=== PATIENT | female | born 1975 | race Caucasian/White ===

== ENCOUNTER 2016-10-23 19:21 | Emergency (ER) | payer MEDICAID ==
[2016-10-23 19:22] VITALS: BMI 39.3
[2016-10-23 19:34] VITALS: BP 127/83; PULSE 96; TEMP 98.9; O2SAT 96
[2016-10-23] MEDS ORDERED: Bacitracin 500 Units/gm Oint Foilpak UD TOP ONE (19:45)
--- NOTE | 2016-10-23 19:49 | C.PDOC ---
History Of Present Illness 40 y/o female presents to the ED with complains of toothache to left upper molar for the past 4 days. Pt has taken ibuprofen and percocet with mild relief. Pt applied ice to the area, fell asleep against ice pack and 2 hours later noticed redness to face. Pt denies fever, chills, sore throat or any other complaints. Time Seen by Provider: 10/23/16 19:34 Chief Complaint (Nursing): Dental Pain History Per: Patient History/Exam Limitations: no limitations Onset/Duration Of Symptoms: Days Current Symptoms Are (Timing): Still Present Severity: Moderate Quality: Positive for: "Pain" Recent travel outside of the [place]: No Past Medical History Reviewed: Historical Data, Nursing Documentation, Vital Signs Vital Signs: Last Vital Signs Temp 98.9 F 10/23/16 19:29 Pulse 96 H 10/23/16 19:29 Resp 20 10/23/16 19:59 BP 127/83 10/23/16 19:29 Pulse Ox 96 10/23/16 20:32 - Medical History PMH: Anemia, Anxiety, Back Problems (SPINAL STENOSIS), Depression, Gastrointestinal Ulcer, HTN, Kidney Stones, Pancreatitis (POST ABD SURG) Surgical History: Cholecystectomy, Endoscopy - [facility] Procedures ESOPHAGOGASTRODUODENOSCOPY [EGD] W/CLOSED BIOPSY (06/15/13) INJECT/INFUSE NEC (10/18/12) OTHER ENDOSCOPY OF SM INTEST (11/01/13) Family History: States: Unknown Family Hx - Social History Hx Tobacco Use: Yes Hx Alcohol Use: No Hx Substance Use: No - Immunization History Hx Tetanus Toxoid Vaccination: Yes Hx Influenza Vaccination: Yes Hx Pneumococcal Vaccination: Yes Review Of Systems Constitutional: Negative for: Fever, Chills Eyes: Negative for: Pain, Vision Change ENT: Positive for: Other (left upper molar toothache). Negative for: Ear Pain, Nose Pain, Throat Pain Cardiovascular: Negative for: Chest Pain Respiratory: Negative for: Cough Gastrointestinal: Negative for: Nausea Skin: Positive for: Other (left cheek redness) Physical Exam - Physical Exam Appears: Non-toxic, No Acute Distress Skin: Warm, Dry, No Rash, Other (blanching erythema to left cheek) Head: Atraumatic, Normacephalic Eye(s): bilateral: Normal Inspection, EOMI Nose: Normal Oral Mucosa: Moist Teeth: Caries (left upper molar with large cavity, no bleeding or swelling), No Loose Gingiva: No Swelling, No Bleeding, No Abscess Throat: Normal, No Erythema Neck: Normal ROM, Supple Extremity: Bilateral: Atraumatic, Normal ROM Neurological/Psych: Oriented x3, Normal Speech ED Course And Treatment O2 Sat by Pulse Oximetry: 96 (on room air) Pulse Ox Interpretation: Normal Medical Decision Making Medical Decision Making: [facility] reviewed: 10/17/2016 CLONAZEPAM 1 MG TABLET #20 10/17/2016 OXYCODONE-ACETAMINOPHEN 10-325 #50 Plan: Treat with Ibuprofen 800mg PO. Bacitracin applied to face. Advise follow up with dentist in few days. Disposition Counseled Patient/Family Regarding: Need For Followup, Rx Given - Disposition Referrals: Non [facility] Provider, [Primary Care Provider] - Disposition: HOME/ ROUTINE Disposition Time: 19:48 Condition: STABLE Additional Instructions: Please follow up with Dentist Take ibuprofen for pain every 6-8 hours as needed May apply bacitracin to face Prescriptions: Ibuprofen [Motrin Tab] 800 mg PO Q12 #14 tab Instructions: Dental Caries (ED) Forms: [facility] - POA Present On Arrival: None - Clinical Impression Clinical Impression: Dental caries - PA / NONPROFIT DIRECTOR / Resident Statement MD/DO has reviewed & agrees with the documentation as recorded. - Scribe Statement The provider has reviewed the documentation as recorded by the Scribe Jose Kelley All medical record entries made by the Scribe were at my direction and personally dictated by me. I have reviewed the chart and agree that the record accurately reflects my personal performance of the history, physical exam, medical decision making, and the department course for this patient. I have also personally directed, reviewed, and agree with the discharge instructions and disposition.
[2016-10-23] MEDS ORDERED: Bacitracin 500 Units/gm Oint Foilpak UD ONE (19:53)
[2016-10-23 20:00] VITALS: RESP 20
== END 2016-10-23 19:59 | disposition home or self-care (01) ==
LOC: C.ER 19:21 → SUPCPDRO 19:21 → C.ER 19:59
DX: K02.9 Dental caries, unspecified (principal)

== ENCOUNTER 2017-10-27 14:41 | Emergency (ER) | payer OTHER ==
[2017-10-27 14:42] VITALS: BMI 39.3
[2017-10-27 14:52] VITALS: O2SAT 99
[2017-10-27 16:02] LABS: HCG,QUALITATIVE URINE NEGATIVE (NEGATIVE)
[2017-10-27 16:12] LABS: SQUAMOUS EPITHIAL 8 /hpf (0-5); URINE BACTERIA RARE (<OCC); URINE BILIRUBIN NEGATIVE (NEGATIVE); URINE CALCIUM OXALATE CRYSTALS OCC /hpf (<OCC); URINE CLARITY Hazy (Clear); URINE COLOR Yellow (YELLOW); URINE GLUCOSE (UA) NORMAL (Normal); URINE LEUKOCYTE ESTERASE NEG Leu/uL (Negative); URINE PROTEIN 1+ mg/dL (NEGATIVE)
[2017-10-27 16:14] LABS: URINE BLOOD 1+ (NEGATIVE)
--- NOTE | 2017-10-27 16:25 | C.PDOC ---
History Of Present Illness 41 y/o female presents to the ER complaining of dysuria, frequency,and urgency which has been present for the past 3 days. Patient states that she also has subjective fever. She denies having nausea, vomiting, and diarrhea. Time Seen by Provider: 10/27/17 15:12 Chief Complaint (Nursing): Female Genitourinary History Per: Patient History/Exam Limitations: no limitations Onset/Duration Of Symptoms: Days Current Symptoms Are (Timing): Still Present Severity: Moderate Past Medical History Reviewed: Historical Data, Nursing Documentation, Vital Signs Vital Signs: Last Vital Signs Temp 98.0 F 10/27/17 16:27 Pulse 63 10/27/17 16:27 Resp 14 10/27/17 16:27 BP 115/74 10/27/17 16:27 Pulse Ox 99 10/27/17 16:27 - Medical History PMH: Anemia, Anxiety, Back Problems (SPINAL STENOSIS), Depression, Gastrointestinal Ulcer, HTN, Kidney Stones, Pancreatitis (POST ABD SURG) Denies: Diabetes, Hepatitis, HIV, Chronic Kidney Disease, Seizures, Sexually Transmitted Disease Surgical History: Cholecystectomy, Endoscopy - [facility] Procedures ESOPHAGOGASTRODUODENOSCOPY [EGD] W/CLOSED BIOPSY (06/15/13) INJECT/INFUSE NEC (10/18/12) OTHER ENDOSCOPY OF SM INTEST (11/01/13) Family History: States: No Known Family Hx - Social History Hx Tobacco Use: Yes Hx Alcohol Use: No Hx Substance Use: Yes (Marijuana) - Immunization History Hx Tetanus Toxoid Vaccination: Yes Hx Influenza Vaccination: Yes Hx Pneumococcal Vaccination: Yes Review Of Systems Except As Marked, All Systems Reviewed And Found Negative. Constitutional: Positive for: Fever (subjective fever). Negative for: Chills Gastrointestinal: Negative for: Nausea, Vomiting, Diarrhea Genitourinary: Positive for: Dysuria, Frequency Physical Exam - Physical Exam Appears: Non-toxic, No Acute Distress Skin: Normal Color, Warm Head: Atraumatic, Normacephalic Eye(s): bilateral: Normal Inspection Ear(s): Bilateral: Normal Nose: Normal Oral Mucosa: Moist Throat: Normal, No Erythema, No Exudate Neck: Supple Chest: Symmetrical Cardiovascular: Rhythm Regular Respiratory: Normal Breath Sounds, No Rales, No Rhonchi, No Wheezing Gastrointestinal/Abdominal: Soft, Tenderness (mild suprapubic tenderness) Extremity: Normal ROM Neurological/Psych: Oriented x3, Normal Speech ED Course And Treatment O2 Sat by Pulse Oximetry: 99 (RA) Pulse Ox Interpretation: Normal Progress Note: Patient given Macrobid PO and Pyridium PO.UA and HCG ordered. Disposition - Disposition Disposition: HOME/ ROUTINE Disposition Time: 16:23 Condition: STABLE Additional Instructions: Follow up with PMD within 1-2 days. Return to ED if feel worse. Prescriptions: Nitrofurantoin Macrocrystals [Macrobid] 1 cap PO BID #14 cap Phenazopyridine [Pyridium] 200 mg PO TID #15 tab Instructions: Urinary Tract Infections in Adults Forms: [employer] (Turkish) - Clinical Impression Clinical Impression: UTI (urinary tract infection) - PA / BED OPERATOR / Resident Statement MD/DO has reviewed & agrees with the documentation as recorded. - Scribe Statement The provider has reviewed the documentation as recorded by the Peggyibe Jade Bautista Provider Attestation All medical record entries made by the Scribe were at my direction and personally dictated by me. I have reviewed the chart and agree that the record accurately reflects my personal performance of the history, physical exam, medical decision making, and the department course for this patient. I have also personally directed, reviewed, and agree with the discharge instructions and disposition.
[2017-10-28 11:17] VITALS: BP 115/74; PULSE 63; RESP 14; TEMP 98
== END 2017-10-27 16:40 | disposition home or self-care (01) ==
LOC: C.ER 14:41
DX: N39.0 Urinary tract infection, site not specified (principal); I10 Essential (primary) hypertension; Z72.0 Tobacco use